=== PATIENT | female | born 1975 | race Caucasian/White ===

== ENCOUNTER 2018-07-08 11:39 | Emergency (ER) | payer OTHER ==
[2018-07-08] MEDS ORDERED: Ketorolac INJ* 60 MG/2 ML VIAL IM ONE (13:39)
[2018-07-08 14:07] LABS: ABS Basophils 0.1 10^3/ul (0-0.2); ABS Eosinophils 0 10^3/ul (0-0.6); ABS Lymphocytes 1.9 10^3/ul (1.0-4.8); ABS Monocytes 0.3 10^3/ul (0-0.8); ABS Neutrophils 6.1 10^3/ul (1.5-7.7); ABS Nucleated RBC 0 10^3/ul; Eosinophil % 0.6 % (0-6); Hematocrit 41 % (35-47); Hemoglobin 14.3 g/dl (12.0-16.0); Lymphocyte % 22.5 % (25-47); Mean Corpuscular HGB Conc 34 g/dl (31-36); Mean Corpuscular Hemoglobin 29 pg (27-31); Mean Corpuscular Volume 83 fL (80-97); Mean Platelet Volume 8.6 um3 (7.4-10.4); Nucleated Red Blood Cells % 0.2; Platelet Count 155 10^3/ul (150-450); Red Cell Distribution Width 14 % (10.5-15); White Blood Count 8.5 10^3/ul (3.5-10.8)
[2018-07-08 14:11] LABS: INR 0.94 (0.77-1.02)
--- NOTE | 2018-07-08 14:46 | RAD ---
CLINICAL HISTORY: R flank pain COMPARISON: Ultrasound dated September 02, 2016, CT dated August 12, 2011 TECHNIQUE: Multiple contiguous axial CT scans were obtained of the abdomen and pelvis, without intravenous contrast enhancement. Coronal and sagittal multiplanar reformations are submitted for review. Oral contrast was not administered. FINDINGS: The study is limited by the lack of intravenous contrast. This limits evaluation of the solid organs and vasculature. LUNG BASES: Again noted is nodularity of the lingula. This is stable from the 2011 examination. The stability is consistent with benign nodularity. LIVER: The liver is normal in shape, size, contour, and attenuation. BILE DUCTS: There is no intrahepatic or extrahepatic biliary dilatation. GALLBLADDER: The gallbladder is normal, without pericholecystic inflammatory change. PANCREAS: The pancreas is normal, without mass or ductal dilatation. SPLEEN: Normal in size and appearance. UPPER GI TRACT: Evaluation of the gastrointestinal tract is limited by incomplete gastric distention. The upper GI tract is unremarkable. SMALL BOWEL AND MESENTERY: The small bowel is normal in contour, course, and caliber. There is no obstruction or dilatation. COLON: The colon is normal in contour, course, caliber. There is no pericolonic inflammatory change. The appendix is not clearly visualized. There is no appreciable inflammatory change within the right lower quadrant. ADRENALS: Normal bilaterally. KIDNEYS: There is a punctate nonobstructing right renal calyceal stone. There is no hydronephrosis. There has been interval resolution of the staghorn calculus of the right kidney. There is a stable cyst of the upper pole of the right kidney BLADDER: The bladder is incompletely distended but is grossly normal. PELVIC ORGANS: The pelvic organs are not visualized. AORTA: There is calcific atherosclerotic disease of the abdominal aorta and its branches, without aneurysmal dilatation IVC: Unremarkable LYMPH NODES: There is no lymphadenopathy by size criteria. ABDOMINAL WALL: There is no evidence for abdominal wall hernia. BONES AND SOFT TISSUES: Degenerative changes are noted most pronounced at L5-S1. OTHER: None IMPRESSION: 1. PUNCTATE NONOBSTRUCTING RIGHT RENAL CALYCEAL STONE. 2. ATHEROSCLEROSIS.
[2018-07-08 14:48] LABS: EGFR Non-African American 90.3 (>60)
[2018-07-08 15:04] VITALS: BP 135/57
--- NOTE | 2018-07-09 07:32 | ED ---
Abdominal Pain/Female - HPI Summary HPI Summary: Patient is a 43-year-old female presenting to the ED very tearful stating she has had right flank pain which has been persistent for "over 365 days." She states she would not be here, however her family made her come. History of chronic pain syndrome and fibromyalgia for which she takes oxycodone daily. She states this has been helping her pain. She states she has followed up with the urologist, however thought Dr. Ortiz from [place] and Dr. Moreno from [place] with the same person. She did not like Dr. Ortiz and again became very tearful stating she would not return to see a urologist. History of kidney stones. Denies any urinary symptoms including burning, frequency, urgency, suprapubic tenderness. Denies any fevers, sweats, chills. Denies any shortness of breath or chest pain. Patient states she is feeling at her baseline and states this is how she feels daily. Nothing has worsened her symptoms over the past few days. Symptoms are not improved with positioning, by mouth intake or heat. - History of Current Complaint Chief Complaint: EDFlankPain Stated Complaint: RT FLANK PAIN/POSS KIDNEY ISSUES Time Seen by Provider: 07/08/18 12:18 Hx Obtained From: Patient Hx Last Menstrual Period: 22 yrs ago ?: No Onset/Duration: Sudden Onset Timing: Constant Severity Initially: Moderate Severity Currently: Moderate Pain Intensity: 0 Pain Scale Used: 0-10 Numeric Location: Flank Radiates: No Character: Dull Aggravating Factor(s): Nothing Alleviating Factor(s): Nothing Associated Signs and Symptoms: Positive: Back Pain. Negative: Blood in Stool, Urinary Symptoms, Decreased Appetite, Vaginal Discharge, Nausea, Vomiting - Risk Factors Ectopic Risk Factor: Negative Ovarian Torsion Risk Factor: Negative Allergies/Adverse Reactions: Allergies Allergy/AdvReac Type Severity Reaction Status Date / Time acetaminophen [From Vicodin] Allergy Severe Airway Verified 07/08/18 12:07 Obstruction hydrocodone [From Vicodin] Allergy Severe Airway Verified 07/08/18 12:07 Obstruction MS Pregabalin [From Lyrica] Allergy Severe Altered Verified 07/08/18 12:07 Mental Status MS Varenicline [From Chantix] Allergy Severe NAUSEA, Verified 07/08/18 12:07 TONGUE "TINGLING" MS Ibuprofen [Ibuprofen] Allergy Vomiting Verified 07/08/18 12:07 NICOTINE PATCH Allergy Rash Uncoded 07/08/18 12:07 PMH/Surg Hx/FS Hx/Imm Hx Previously Healthy: Yes Endocrine/Hematology History: Denies: Hx Diabetes, Hx Systemic Lupus Erythematosus, Hx Thyroid Disease Cardiovascular History: Reports: Hx Hypercholesterolemia Denies: Hx Congestive Heart Failure, Hx Hypertension, Hx Pacemaker/ICD Respiratory History: Reports: Hx Chronic Obstructive Pulmonary Disease (COPD), Other Respiratory Problems/Disorders - SOB/WHEEZING WITH EXTREME EXERTION- PRN INHALER Denies: Hx Asthma GI History: Denies: Hx Ulcer History: Reports: Hx Kidney Stones, Other Problems/Disorders - KIDNEY STONES X 5 STAGHORN KIDNEY SURGERY X 5 Denies: Hx Dialysis, Hx Renal Disease Musculoskeletal History: Reports: Other Musculoskeletal History - HX FIBROMYALGIA Denies: Hx Rheumatoid Arthritis Sensory History: Reports: Hx Contacts or Glasses - GLASSES Denies: Hx Hearing Aid Opthamlomology History: Reports: Hx Contacts or Glasses - GLASSES Psychiatric History: Denies: Hx Panic Disorder - Cancer History Cancer Type, Location and Year: uterine ca Hx Chemotherapy: No - Surgical History Surgery Procedure, Year, and Place: X 5 STAGHORN CALCULI, HYSTERECTOMY Hx Anesthesia Reactions: No - Immunization History Hx Pertussis Vaccination: No Immunizations Up to Date: Yes Infectious Disease History: No Infectious Disease History: Denies: Hx Hepatitis, Hx Human Immunodeficiency Virus (HIV), Traveled Outside the in Last 30 Days - Social History Occupation: Unemployed Lives: With Family Alcohol Use: None Hx Substance Use: Yes Substance Use Type: Reports: Marijuana Smoking Status (MU): Light Every Day Tobacco Smoker Type: Cigarettes Review of Systems Constitutional: Negative Negative: Fever, Chills, Fatigue Negative: Palpitations, Chest Pain Negative: Shortness Of Breath, Cough Positive: see HPI, flank pain Skin: Negative Neurological: Negative All Other Systems Reviewed And Are Negative: Yes Physical Exam Triage Information Reviewed: Yes Vital Signs On Initial Exam: Initial Vitals Temp Pulse Resp BP Pulse Ox 98 F 70 18 132/72 99 07/08/18 11:40 07/08/18 11:40 07/08/18 11:40 07/08/18 11:40 07/08/18 11:40 Vital Signs Reviewed: Yes Appearance: Positive: Well-Appearing, Well-Nourished Skin: Positive: Warm, Skin Color Reflects Adequate Perfusion Head/Face: Positive: Normal Head/Face Inspection Eyes: Positive: EOMI, NITZA, Conjunctiva Clear Neck: Positive: Supple, No Lymphadenopathy Respiratory/Lung Sounds: Positive: Clear to Auscultation, Breath Sounds Present Cardiovascular: Positive: RRR, Pulses are Symmetrical in both Upper and Lower Extremities Abdomen Description: Positive: Nontender, Soft, CVA Tenderness (R). Negative: CVA Tenderness (L), Hepatomegaly, McBurney's Point Tenderness, Splenomegaly Musculoskeletal: Positive: Normal, Strength/ROM Intact Neurological: Positive: Speech Normal Psychiatric: Positive: Normal, Affect/Mood Appropriate AVPU Assessment: Alert Diagnostics - Vital Signs Vital Signs Temp Pulse Resp BP Pulse Ox 07/08/18 15:20 98 F 50 18 135/57 97 07/08/18 15:02 58 14 135/57 96 07/08/18 15:00 51 10 96 07/08/18 14:32 50 11 130/58 99 07/08/18 14:01 61 13 146/79 98 07/08/18 14:00 52 12 100 07/08/18 13:31 69 16 152/84 98 07/08/18 13:02 53 20 136/69 99 07/08/18 13:00 69 19 97 07/08/18 12:01 72 20 126/86 99 07/08/18 11:40 98 F 70 18 132/72 99 - Laboratory Lab Results: Lab Results 07/08/18 07/08/18 07/08/18 Range/Units 13:54 13:54 13:54 WBC 8.5 (3.5-10.8) 10^3/ul RBC 5.00 (4.00-5.40) 10^6/ul Hgb 14.3 (12.0-16.0) g/dl Hct 41 (35-47) % MCV 83 (80-97) fL MCH 29 (27-31) pg MCHC 34 (31-36) g/dl RDW 14 (10.5-15) % Plt Count 155 (150-450) 10^3/ul MPV 8.6 (7.4-10.4) um3 Neut % (Auto) 72.4 (38-83) % Lymph % (Auto) 22.5 L (25-47) % Beauregard % (Auto) 3.5 (0-7) % Eos % (Auto) 0.6 (0-6) % Baso % (Auto) 1.0 (0-2) % Absolute Neuts (auto) 6.1 (1.5-7.7) 10^3/ul Absolute Lymphs (auto) 1.9 (1.0-4.8) 10^3/ul Absolute Monos (auto) 0.3 (0-0.8) 10^3/ul Absolute Eos (auto) 0 (0-0.6) 10^3/ul Absolute Basos (auto) 0.1 (0-0.2) 10^3/ul Absolute Nucleated RBC 0 10^3/ul Nucleated RBC % 0.2 INR (Anticoag Therapy) 0.94 (0.77-1.02) Sodium 139 (135-145) mmol/L Potassium 4.0 (3.5-5.0) mmol/L Chloride 110 (101-111) mmol/L Carbon Dioxide 21 L (22-32) mmol/L Anion Gap 8 (2-11) mmol/L BUN 13 (6-24) mg/dL Creatinine 0.71 (0.51-0.95) mg/dL Est GFR ( Amer) 109.2 (>60) Est GFR (Non-Af Amer) 90.3 (>60) BUN/Creatinine Ratio 18.3 (8-20) Glucose 87 (70-100) mg/dL Lactic Acid (0.5-2.0) mmol/L Calcium 9.5 (8.6-10.3) mg/dL Magnesium 2.0 (1.9-2.7) mg/dL Total Bilirubin 0.40 (0.2-1.0) mg/dL AST 12 L (13-39) U/L ALT 9 (7-52) U/L Alkaline Phosphatase 86 (34-104) U/L C-Reactive Protein 6.69 (<8.01) mg/L Total Protein 7.5 (6.4-8.9) g/dL Albumin 4.2 (3.2-5.2) g/dL Globulin 3.3 (2-4) g/dL Albumin/Globulin Ratio 1.3 (1-3) Lipase 13 (11.0-82.0) U/L Beta HCG, Quant 1.57 mIU/mL 07/08/18 Range/Units 13:54 WBC (3.5-10.8) 10^3/ul RBC (4.00-5.40) 10^6/ul Hgb (12.0-16.0) g/dl Hct (35-47) % MCV (80-97) fL MCH (27-31) pg MCHC (31-36) g/dl RDW (10.5-15) % Plt Count (150-450) 10^3/ul MPV (7.4-10.4) um3 Neut % (Auto) (38-83) % Lymph % (Auto) (25-47) % Beauregard % (Auto) (0-7) % Eos % (Auto) (0-6) % Baso % (Auto) (0-2) % Absolute Neuts (auto) (1.5-7.7) 10^3/ul Absolute Lymphs (auto) (1.0-4.8) 10^3/ul Absolute Monos (auto) (0-0.8) 10^3/ul Absolute Eos (auto) (0-0.6) 10^3/ul Absolute Basos (auto) (0-0.2) 10^3/ul Absolute Nucleated RBC 10^3/ul Nucleated RBC % INR (Anticoag Therapy) (0.77-1.02) Sodium (135-145) mmol/L Potassium (3.5-5.0) mmol/L Chloride (101-111) mmol/L Carbon Dioxide (22-32) mmol/L Anion Gap (2-11) mmol/L BUN (6-24) mg/dL Creatinine (0.51-0.95) mg/dL Est GFR ( Amer) (>60) Est GFR (Non-Af Amer) (>60) BUN/Creatinine Ratio (8-20) Glucose (70-100) mg/dL Lactic Acid 0.7 (0.5-2.0) mmol/L Calcium (8.6-10.3) mg/dL Magnesium (1.9-2.7) mg/dL Total Bilirubin (0.2-1.0) mg/dL AST (13-39) U/L ALT (7-52) U/L Alkaline Phosphatase (34-104) U/L C-Reactive Protein (<8.01) mg/L Total Protein (6.4-8.9) g/dL Albumin (3.2-5.2) g/dL Globulin (2-4) g/dL Albumin/Globulin Ratio (1-3) Lipase (11.0-82.0) U/L Beta HCG, Quant mIU/mL Result Diagrams: 07/08/18 13:54 07/08/18 13:54 Lab Statement: Any lab studies that have been ordered have been reviewed, and results considered in the medical decision making process. Abdominal Pain Fem Course/Dx - Course Course Of Treatment: Patient is evaluated for possible obstructing kidney stone. History of kidney stones, however states this has been present times one year. CTA obtained which shows a nonobstructing right renal calculi. This most likely is not the cause of her symptoms. She has been told in the past she has a "dysfunctional kidney." She states her at home oxycodone has been helping her with her pain. Labs obtained and are all WNL. Discussed with patient and highly encouraging her to follow up with Dr. Moreno for further evaluation. She is okay with this plan and discharged. While she is in the ED she is given 60 mg IM Toradol with minimal relief. - Diagnoses Provider Diagnoses: Renal calculi Discharge - Sign-Out/Discharge Documenting (check all that apply): Patient Departure - Discharge Plan Condition: Stable Disposition: HOME Patient Education Materials: Kidney Stones (ED) Referrals: Alondra Thompson [Primary Care Provider] - Js Moreno MD [Medical Doctor] - - Billing Disposition and Condition Condition: STABLE Disposition: Home
== END 2018-07-08 15:20 | disposition home or self-care (01) ==
LOC: ED 11:39
DX: N20.0 Calculus of kidney (principal); M54.9 Dorsalgia, unspecified; F17.210 Nicotine dependence, cigarettes, uncomplicated
CPT/HCPCS: 36415; 74176; 80053; 83605; 83690; 83735; 84702; 85025; 85610; 86140; 96372; 99283; J1885

== ENCOUNTER 2019-03-12 07:06 | Emergency (ER) | payer OTHER ==
--- NOTE | 2019-03-12 07:19 | ED ---
Abdominal Pain/Female - HPI Summary HPI Summary: A 44 y/o F brought in by ambulance presents to ED c/o vomiting onset 0300 this date. The vomiting irritated her R kidneys, she has PMHx: repetitious kidney stones on R. She sees Dr. Moreno, uro. Associated sx: bilat temporal SKELTON, R flank pain. She was at baseline yesterday. - History of Current Complaint Chief Complaint: EDFlankPain Stated Complaint: "FLANK PAIN" PER EMS Time Seen by Provider: 03/12/19 07:14 Hx Obtained From: Patient Hx Last Menstrual Period: 22 yrs ago Onset/Duration: Lasting Hours, Still Present Timing: Constant Severity Currently: Severe Pain Intensity: 9 Pain Scale Used: 0-10 Numeric Location: Flank - R Associated Signs and Symptoms: Positive: Vomiting, Other: - pos: R flank pain, SKELTON. Allergies/Adverse Reactions: Allergies Allergy/AdvReac Type Severity Reaction Status Date / Time acetaminophen [From Vicodin] Allergy Severe Airway Verified 07/08/18 12:07 Obstruction hydrocodone [From Vicodin] Allergy Severe Airway Verified 07/08/18 12:07 Obstruction nicotine [From Nicoderm CQ] Allergy Severe Rash Verified 03/12/19 08:34 pregabalin Allergy Severe Altered Verified 03/12/19 08:34 Mental Status varenicline Allergy Severe Nausea, Verified 03/12/19 08:34 Tongue "tingling" ibuprofen AdvReac Intermediate Vomiting Verified 03/12/19 08:34 NICOTINE PATCH Allergy Severe Rash Uncoded 03/12/19 08:34 Home Medications: Home Medications Oxycodone IR 10 MG(NF) 10 mg PO TID PRN 03/12/19 [History Confirmed 03/12/19] PMH/Surg Hx/FS Hx/Imm Hx Previously Healthy: No Endocrine/Hematology History: Denies: Hx Diabetes, Hx Systemic Lupus Erythematosus, Hx Thyroid Disease Cardiovascular History: Reports: Hx Hypercholesterolemia Denies: Hx Congestive Heart Failure, Hx Hypertension, Hx Pacemaker/ICD Respiratory History: Reports: Hx Chronic Obstructive Pulmonary Disease (COPD), Other Respiratory Problems/Disorders - SOB/WHEEZING WITH EXTREME EXERTION- PRN INHALER Denies: Hx Asthma GI History: Denies: Hx Ulcer History: Reports: Hx Kidney Stones, Other Problems/Disorders - KIDNEY STONES X 5 STAGHORN KIDNEY SURGERY X 5 Denies: Hx Dialysis, Hx Renal Disease Musculoskeletal History: Reports: Other Musculoskeletal History - HX FIBROMYALGIA Denies: Hx Rheumatoid Arthritis Sensory History: Reports: Hx Contacts or Glasses - GLASSES Opthamlomology History: Reports: Hx Contacts or Glasses - GLASSES Psychiatric History: Denies: Hx Panic Disorder - Cancer History Cancer Type, Location and Year: uterine ca Hx Chemotherapy: No - Surgical History Surgery Procedure, Year, and Place: X 5 STAGHORN CALCULI, HYSTERECTOMY Hx Anesthesia Reactions: No Infectious Disease History: No Infectious Disease History: Denies: Hx Hepatitis, Hx Human Immunodeficiency Virus (HIV), Traveled Outside the [place] in Last 30 Days - Family History Family History: neg: anaesthesia reaction - Social History Occupation: Unemployed Lives: Alone Alcohol Use: None Hx Substance Use: Yes Substance Use Type: Reports: Marijuana Hx Tobacco Use: Yes Smoking Status (MU): Light Every Day Tobacco Smoker Type: Cigarettes Review of Systems Positive: Vomiting Positive: flank pain - R Positive: Headache All Other Systems Reviewed And Are Negative: Yes Physical Exam - Summary Physical Exam Summary: Appearance: The patient is well-nourished in no acute distress and in no acute pain. Skin: The skin is warm and dry and skin color reflects adequate perfusion. HEENT: The head is normocephalic and atraumatic. The pupils are equal and reactive. The conjunctivae are clear and without drainage. Nares are patent and without drainage. Mouth reveals moist mucous membranes and the throat is without erythema and exudate. The external ears are intact. The ear canals are patent and without drainage. The tympanic membranes are intact. Neck: the neck is supple with full range of motion and non-tender. There are no carotid bruits. There is no neck vein distension. Respiratory: Chest is non-tender. Lungs are clear to auscultation and breath sounds are symmetrical and equal. Cardiovascular: Heart is regular rate and rhythm. There is no murmur or rub auscultated. There is no peripheral edema and pulses are symmetrical and equal. Abdomen: The abdomen is soft and non-tender. No CVA tenderness. There are normal bowel sounds heard in all four quadrants and there is no organomegaly palpated. Musculoskeletal: There is no back tenderness noted. Extremities are non-tender with full range of motion. There is good capillary refill. There is no peripheral edema or calf tenderness elicited. Neurological: Patient is alert and oriented to person, place and time. The patient has symmetrical motor strength in all four extremities. Cranial nerves are grossly intact. Deep tendon reflexes are symmetrical and equal in all four extremities. Psychiatric: The patient has an appropriate affect and does not exhibit any anxiety or depression. Triage Information Reviewed: Yes Vital Signs On Initial Exam: Initial Vitals Temp Pulse Resp BP Pulse Ox 97.0 F 62 18 162/88 100 03/12/19 07:12 03/12/19 07:12 03/12/19 07:12 03/12/19 07:12 03/12/19 07:12 Vital Signs Reviewed: Yes Diagnostics - Vital Signs Vital Signs Temp Pulse Resp BP Pulse Ox 03/12/19 07:12 97.0 F 62 18 162/88 100 - Laboratory Result Diagrams: 03/11/19 07:47 03/11/19 07:47 Lab Statement: Any lab studies that have been ordered have been reviewed, and results considered in the medical decision making process. - Ultrasound No standard instances Ultrasound Interpretation Completed By: Radiologist Summary of Ultrasound Findings: RENAL US IMPRESSION: NO RIGHT HYDRONEPHROSIS OR NEPHROLITHIASIS. ED provider has reviewed this report. Abdominal Pain Fem Course/Dx - Course Course Of Treatment: Mr. Saeed had rapid and near complete relief of her headache and vomiting with IV pain medications of morphine and Zofran. Her right flank pain reduced to her chronic level and she felt much improved. She has no hydronephrosis on ultrasound but she does have a spot of blood microscopically in her urine and I can't know for certain whether she has a stone or not without doing a CT. Since she is improved dramatically I'm hesitant to expose her to even more radiation she's had quite a lifetime burden already. She had a white count of 13,000 consistent with stress demargination and there was no sign of infection in her urine. - Diagnoses Provider Diagnoses: Headache Discharge - Sign-Out/Discharge Documenting (check all that apply): Patient Departure - D/C Patient Received Moderate/Deep Sedation with Procedure: No - Discharge Plan Condition: Stable Disposition: HOME Patient Education Materials: Acute Headache (ED) Referrals: Alondra Thompson [Primary Care Provider] - 3 Days Additional Instructions: Please return to the ED if you experience new or worsening symptoms. Follow up with your primary care provider in 2-3 days. - Billing Disposition and Condition Condition: STABLE Disposition: Home - Attestation Statements Document Initiated by Scribe: Yes Documenting Scribe: Nain Valle Provider For Whom Karoline is Documenting (Include Credential): Dr. Nikolay Guaman MD Scribe Attestation: I, Nain Valle, scribed for Dr. Nikolay Guaman MD on 03/12/19 at 1056. Scribe Documentation Reviewed: Yes Provider Attestation: The documentation as recorded by the karoline, Nain Valle accurately reflects the service I personally performed and the decisions made by me, Dr. Nikolay Guaman MD Status of Scribe Document: Viewed
[2019-03-12] MEDS ORDERED: Ondansetron INJ* 2 MG/ML VIAL IV ONE (07:31)
[2019-03-12] MEDS ORDERED: Morphine 4 MG/ML VIAL (1 ml) 4 MG/ML VIAL IV ONE (07:31)
[2019-03-12] MEDS ORDERED: NS 0.9% 1000 ML** 1,000 ML IV ONE (07:33)
[2019-03-12 08:14] LABS: Hematocrit 47 % (35-47); Hemoglobin 15.9 g/dL (12.0-16.0); Mean Corpuscular HGB Conc 34 g/dL (31-36); Mean Corpuscular Hemoglobin 29 pg (27-31); Mean Corpuscular Volume 85 fL (80-97); Red Blood Count 5.55 10^6 /uL (3.70-4.87); Red Cell Distribution Width 15 % (10.5-15); White Blood Count 13.4 10^3/uL (3.5-10.8)
[2019-03-12 08:15] LABS: Albumin 4.7 g/dL (3.2-5.2); Albumin/Globulin Ratio 1.2 (1-3); BUN/Creatinine Ratio 18.7 (8-20); C Reactive Protein 13.81 mg/L (<8.01); Calcium 10.4 mg/dL (8.6-10.3); EGFR African American 81.6 (>60); EGFR Non-African American 67.5 (>60); Globulin 3.9 g/dL (2-4); Potassium 4.2 mmol/L (3.5-5.0); Total Bilirubin 0.3 mg/dL (0.2-1.0); Total Protein 8.6 g/dL (6.4-8.9)
[2019-03-12 08:21] LABS: HCG Pregnancy 0.99 mIU/mL
[2019-03-12 09:27] LABS: ABS Basophils 0.1 10^3/ul (0-0.2); ABS Eosinophils 0.1 10^3/ul (0-0.6); ABS Lymphocytes 1.9 10^3/ul (1.0-4.8); ABS Monocytes 0.2 10^3/ul (0-0.8); ABS Neutrophils 11.2 10^3/ul (1.5-7.7); Eosinophil % 0.5 %; Lymphocyte % 13.8 %; Mean Platelet Volume 8.7 fL (7.4-10.4); Nucleated Red Blood Cells % 0.1; Platelet Count 194 10^3/uL (150-450)
[2019-03-12 10:32] LABS: Urine Appearance Clear; Urine Bacteria Absent (Absent); Urine Bilirubin Negative (Negative); Urine Blood Negative (Negative); Urine Color Yellow; Urine Glucose Negative (Negative); Urine Ketones Trace (Negative); Urine Nitrite Negative (Negative); Urine Protein 1+(30 mg/dL) (Negative); Urine Red Blood Cell 2+(6-10/hpf) (Absent); Urine Specific Gravity 1.023 (1.010-1.030); Urine Squamous Epithelial Cell Present (Absent); Urine Urobilinogen Negative (Negative); Urine White Blood Cell Trace(0-5/hpf) (Absent)
[2019-03-12 11:04] VITALS: BP 123/93
== END 2019-03-12 11:03 | disposition home or self-care (01) ==
LOC: ED 07:06
DX: R51 Headache (principal); E78.00 Pure hypercholesterolemia, unspecified; J44.9 Chronic obstructive pulmonary disease, unspecified; M79.7 Fibromyalgia; F17.210 Nicotine dependence, cigarettes, uncomplicated; Z79.51 Long term (current) use of inhaled steroids; Z85.42 Personal history of malignant neoplasm of other parts of uterus; Z88.6 Allergy status to analgesic agent; Z88.5 Allergy status to narcotic agent; Z88.8 Allergy status to other drugs, medicaments and biological substances
CPT/HCPCS: 36415; 76775; 80053; 81003; 81015; 83605; 83690; 84702; 85025; 86140; 87086; 96374; 96375; 99284; J2270; J2405

== ENCOUNTER 2019-08-13 15:43 | Emergency (ER) | payer OTHER ==
--- OUTSIDE RECORDS SUMMARY | 2019-08-13 16:15 | XMS REPORT | Continuity of Care Document ---
:1975 External Reference #:[id number] Author Name Alondra Flynn PA (transmitted by agent of provider Yunior Marshall) Address [address] [facility], [address] [place] [address] Care Team Providers Name Role Phone Js Moreno MD - Urology Care Team Information Hydraulic Press Operator [phone] Alexi Pena DO - Pain Medicine Care Team Information Hydraulic Press Operator Alhaji Fink MD - Neurological Care Team Information Hydraulic Press Operator Surgery HCP given Care Team Information Hydraulic Press Operator Unavailable Problems Active Problems Provider Date Splenic cyst Alondra Flynn PA Onset: 12/06/2016 Chronic pain syndrome Alondra Flynn PA Onset: 12/06/2016 Onychomycosis Alondra Flynn PA Onset: 12/06/2016 Hyperlipidemia Alondra Flynn PA Onset: 12/06/2016 Depressive disorder Alondra Flynn PA Onset: 12/06/2016 Nicotine dependence Alondra Flynn PA Onset: 12/06/2016 Insomnia Alondra Flynn PA Onset: 12/06/2016 Raynaud's disease Alondra Flynn PA Onset: 12/06/2016 Chronic obstructive lung disease Alondra Flynn PA Onset: 12/06/2016 Multiple nodules of lung Alondra Flynn PA Onset: 12/06/2016 Kidney stone Alondra Flynn PA Onset: 12/06/2016 Prolapsed lumbar intervertebral disc Alondra Flynn PA Onset: 12/06/2016 Neck pain Alondra Flynn PA Onset: 12/06/2016 Low back pain Alondra Flynn PA Onset: 12/06/2016 Sciatica Alondra Flynn PA Onset: 12/06/2016 Fibromyalgia Alondra Flynn PA Onset: 12/06/2016 Congenital anomaly of lung Alondra Flynn PA Onset: 12/06/2016 Tobacco user Alondra Flynn PA Onset: 12/06/2016 Solitary nodule of lung Alondra Flynn PA Onset: 12/06/2016 Recurrent major depressive episodes Alondra Flynn PA Onset: 06/20/2017 Social History Type Date Description Comments Sex Unknown Tobacco Use Reviewed: 02/24/19 Patient is a current trying to cut down cigarette smoker, smokes every day Smoking Status Reviewed: 02/26/19 Patient is a current trying to cut down cigarette smoker, smokes every day ETOH Use Denies alcohol use Tobacco Use Start: Unknown Patient is a current smoker, smokes every day Recreational Drug Use 01/21/2019 Marijuana regular use - helps chronic pain Exercise Type/Frequency Does not exercise Sun Exposure Does not use sunscreen Seat Belt/Car Seat Seat Belt Use - Yes Guns in Home No Smoke Alarms Yes smoke alarm Allergies, Adverse Reactions, Alerts Active Allergies Reaction Severity Comments Date Ibuprofen dizziness 12/06/2016 Lyrica anaphylaxis 12/06/2016 Vicodin dizziness 12/06/2016 Cyclobenzaprine headaches 02/24/2019 Medications Active Medications SIG Qnty Indications Ordering Date Provider Oxycodone HCL take 1-2 tablets 82tabs G89.4 Yunior Marshall, 06/11/2019 5mg Tablets by mouth 3 times D.O. a day as needed for pain refill due 06/18/19 Cyclobenzaprine HCL 1 tab by mouth 90tabs Silcoff, 05/11/2019 10mg three times a Melissa Fischer Tablets day as needed for spasms Amoxicillin/Clavulanat 1 tab by mouth 20tabs J01.90 Silcoff, 03/24/2019 e Potassium twice a day x10 Melissa Fischer 875-125mg days Tablets Gabapentin take 1 cap po in 90caps G89.4 Silcoff, 01/22/2018 100mg Capsules morning and 2 Melissa Fischer capsules po at bedtime Ventolin HFA 2 puffs q4-6 18gm Silcoff, 11/05/2017 108(90Base) hours as needed Melissa Fischer mcg/Act Aerosol Ciclopirox apply to 19.8ml Silcoff, 10/02/2017 8% Solution affected nails Melissa Fischer twice a day Vitamin B-12 2 tabs po daily 60tabs Silcoff, 10/02/2017 500mcg Melissa Fischer Tablets Zaleplon 1 cap by mouth 30caps G47.00 Silcoff, 07/09/2017 10mg Capsules at bedtime for Melissa Fischer insomnia mdd 1 Citalopram take 1 tablet by 30tabs F33.9 Silcoff, 06/20/2017 Hydrobromide mouth once daily Melissa Fischer 40mg Tablets Triamcinolone use as directed 15gm Silcoff, 12/06/2016 Acetonide twice a day to Melissa Fischer 0.1% Cream affected areas as needed Oxygen NC Alondra Flynn, 12/06/2016 PA Naproxen Sodium Unknown 275mg Tablets Advair Diskus Stevanofred, MD Deisy 250-50mcg/Dose Aerosol Ondansetron 1 tab by mouth 3 90tabs Silcoff, 4mg Tablets times a day as Melissa Fischer Dispers needed nausea Simvastatin take 1 tablet by 30tabs E78.5 Silcoff, 10mg Tablets mouth at bedtime Melissa Fischer Albuterol Sulfate inhale contents 225units Silcoff, of 1 vial in Melissa Fischer (2.5mg/3ML) 0.083% nebulizer three Nebulizer times a day For 30 Days Immunizations Description No Information Available Vital Signs Date Vital Result Comment 03/24/2019 2:52pm BP Systolic 128 mmHg BP Diastolic 78 mmHg 02/24/2019 9:11am BP Systolic 108 mmHg BP Diastolic 70 mmHg Height 63 inches 5'3" Weight 152.50 lb BMI (Body Mass Index) 27.0 kg/m2 Results Test Date Facility Test Result H/L Range Note Comp Metabolic Panel 03/11/2019 [facility] Sodium 140 mmol/L Normal 135-145 [phone] Potassium 4.2 mmol/L Normal 3.5-5.0 Chloride 107 mmol/L Normal 101-111 Co2 Carbon Dioxide 21 mmol/L Low 22-32 Anion Gap 12 mmol/L High 2-11 Glucose 150 mg/dL High 70-100 Blood Urea Nitrogen 17 mg/dL Normal 6-24 Creatinine 0.91 mg/dL Normal 0.51-0.95 BUN/Creatinine Ratio 18.7 Normal 8-20 Calcium 10.4 mg/dL High 8.6-10.3 Total Protein 8.6 g/dL Normal 6.4-8.9 Albumin 4.7 g/dL Normal 3.2-5.2 Globulin 3.9 g/dL Normal 2-4 Albumin/Globulin Ratio 1.2 Normal 1-3 Total Bilirubin 0.30 mg/dL Normal 0.2-1.0 Alkaline Phosphatase 111 U/L High 34-104 Alt 13 U/L Normal 7-52 Ast 13 U/L Normal 13-39 Egfr Non- 67.5 >60 Egfr 81.6 >60 1 Laboratory test finding 03/11/2019 [facility] Lipase 20 U/L Normal 11.0-82.0 [phone] C Reactive Protein 13.81 mg/L High <8.01 HCG 0.99 mIU/mL 2 Lactic Acid 2.1 mmol/L Critical high 0.5-2.0 3 CBC Auto Diff 03/11/2019 [facility] White Blood 13.4 10^3/uL High 3.5 -10.8 [phone] Count Red Blood Count 5.55 10^6/uL High 3.70-4.87 Hemoglobin 15.9 g/dL Normal 12.0-16.0 Hematocrit 47 % Normal 35-47 Mean Corpuscular Volume 85 fL Normal 80-97 Mean Corpuscular Hemoglobin 29 pg Normal 27-31 Mean Corpuscular HGB Conc 34 g/dL Normal 31-36 Red Cell Distribution Width 15 % Normal 10.5-15 Platelet Count 194 10^3/uL Normal 150-450 4 Mean Platelet Volume 8.7 fL Normal 7.4-10.4 Abs Neutrophils 11.2 10^3/uL High 1.5-7.7 Abs Lymphocytes 1.9 10^3/uL Normal 1.0-4.8 Abs Monocytes 0.2 10^3/uL Normal 0-0.8 Abs Eosinophils 0.1 10^3/uL Normal 0-0.6 Abs Basophils 0.1 10^3/uL Normal 0-0.2 Abs Nucleated RBC 0.0 10^3/uL Granulocyte % 83.4 % Lymphocyte % 13.8 % Monocyte % 1.6 % Eosinophil % 0.5 % Basophil % 0.7 % Nucleated Red Blood Cells % 0.1 Urinalysis Profile 03/11/2019 [facility] Urine Color Yellow [phone] Urine Appearance Clear Urine Specific [place] 1.023 Normal 1.010-1.030 Urine pH 5.0 Normal 5-9 Urine Urobilinogen Negative Negative Urine Ketones Trace Abnormal Negative Urine Protein 1+(30 mg/dL) Abnormal Negative Urine Leukocytes Negative Negative Urine Blood Negative Negative Urine Nitrite Negative Negative Urine Bilirubin Negative Negative Urine Glucose Negative Negative Urine White Blood Cell Trace(0-5/hpf) Absent Urine Red Blood Cell 2+(6-10/hpf) Abnormal Absent Urine Bacteria Absent Absent Urine Squamous Epithelial Cell Present Abnormal Absent Urine Culture And 03/11/2019 [facility] Urine Culture SEE RESULT BELOW 5 Sensitivities [phone] Urine Drug Screen 01/21/2019 In House Ua Cocaine - Inhouse Ua Opiates - Ua Amphetamines - Urine Methanphetamines - Urine Benzodiazepines QN [place] - Urine Oxycodone QL + 1 Because ethnic data is not always readily available, this report includes an eGFR for both -Americans and non- Americans. The National Kidney Disease Education Program (NKDEP) does not endorse the use of the MDRD equation for patients that are not between the ages of 18 and 70, are , have extremes of body size, muscle mass, or nutritional status, or are non- or non-. According to the National Kidney Foundation, irrespective of diagnosis, the stage of the disease is based on the level of kidney function: Stage Description GFR(mL/min/1.73 m(2)) 1 Kidney damage with normal or decreased GFR 90 2 Kidney damage with mild decrease in GFR 60-89 3 Moderate decrease in GFR 30-59 4 Severe decrease in GFR 15-29 5 Kidney failure <15 (or dialysis) 2 <5.0 Negative 5.0 - 25.0 Indeterminate (Repeat testing recommended after 72 hours) >25.0 Positive Perimenopausal women can display HCG levels of up to 20 mIU/mL 3 Verbal to [id number] by [email or web address] at 0833 on 03/12/19.Results read back accurately [facility] Severe Sepsis and Septic Shock Management Bundle Measure requires all lactic acids initially measuring >2.0 mmol/L be repeated. 4 Platelet count confirmed by estimate 5 SEE RESULT BELOW Name: DESIRAE SAEED Angela : [address]: Nikolay Guaman MD Acct: [id number] Unit: [id number] AGE: 44 Location: ED Re03/12/19 SEX: F Status: DEP ER SPEC: [id number] YANI: 03/12/19-[address]: Nikolay Guaman MD REQ: [id number] RECD: 03/12/19 STATUS: SCOTT VO DR: Alondra Flynn [facility] _ SOURCE: URINE SPDESC: ORDERED: Urine Culture Procedure Result Reported Site Urine Culture Final 03/13/19- 826 ML No Growth (<1,000 CFU/mL) * ML - Main Lab . END OF REPORT DEPARTMENT OF PATHOLOGY, [address] [place] [address] Boy Mosher M.D. Director [facility] # [id number] Procedures Date Code Description Status 11/04/2012 22454636 Mammogram Completed Medical Devices Description No Information Available Encounters Type Date Location Provider Dx Diagnosis Office Visit 03/24/2019 Main Office Alondra Flynn PA J01.90 Acute sinusitis, 2:30p unspecified R51 Headache Office Visit 02/24/2019 9:25a Main Office Alondra Flynn PA G89.4 Chronic pain syndrome Z79.891 transliterator (current) use of opiate analgesic N20.0 Calculus of kidney F17.210 Nicotine dependence, cigarettes, uncomplicated F33.9 Major depressive disorder, recurrent, unspecified Office Visit 01/21/2019 10:40a Main Office Alondra Flynn PA G89.4 Chronic pain syndrome Z79.891 senior care (current) use of opiate analgesic N20.0 Calculus of kidney F17.210 Nicotine dependence, cigarettes, uncomplicated Assessments Date Code Description Provider 03/24/2019 J01.90 Acute sinusitis, unspecified Alondra Flynn PA 03/24/2019 R51 Headache Alondra Flynn PA 02/24/2019 G89.4 Chronic pain syndrome Alondra Flynn PA 02/24/2019 Z79.891 senior care (current) use of opiate analgesic Alondra Flynn PA 02/24/2019 N20.0 Calculus of kidney Alondra Flynn PA 02/24/2019 F17.210 Nicotine dependence, cigarettes, uncomplicated Alondra Flynn PA 02/24/2019 F33.9 Major depressive disorder, recurrent, Alondra Flynn PA unspecified 01/21/2019 G89.4 Chronic pain syndrome Alondra Flynn PA 01/21/2019 Z79.891 transliterator (current) use of opiate analgesic Alondra Flynn PA 01/21/2019 N20.0 Calculus of kidney Alondra Flynn PA 01/21/2019 F17.210 Nicotine dependence, cigarettes, uncomplicated Alondra Flynn PA Plan of Treatment 02/24/2019 - Alondra Flynn, PAG89.4 Chronic pain syndromeComments:Continue oxycodone prn (max 3/day), gradually try to taper off. Pt to call if she is having any trouble. Monitor closely.Follow up:f/u 2-3 months, sooner if pohbxzJ18.891 transliterator (current) use of opiate vbiecjvytL74.0 Calculus of kidneyComments:Pt to f/u w Dr. Moreno (urology).F17.210 Nicotine dependence, cigarettes, uncomplicatedComments:Smoking cessation counseling <10 minutes done today. Pt is trying to cut down.F33.9 Major depressive disorder, recurrent , unspecifiedComments:Doing well overall on 40mg of citalopram. Continue same and monitor. Functional Status Description No Information Available Mental Status Description No Information Available Referrals Description No Information Available
--- OUTSIDE RECORDS SUMMARY | 2019-08-13 16:15 | XMS REPORT | Continuity of Care Document ---
:1975 External Reference #:[id number] Author Name Alondra Flynn PA (transmitted by agent of provider Yunior Marshall) Address [address] [facility], [address] [place] [address] Care Team Providers Name Role Phone Js Moreno MD - Urology Care Team Information Paperhanger Assistant [phone] Alexi Pena DO - Pain Medicine Care Team Information Paperhanger Assistant [phone] Alhaji Fink MD - Neurological Care Team Information Paperhanger Assistant [phone] Surgery HCP given Care Team Information Paperhanger Assistant Unavailable Problems Active Problems Provider Date Splenic [...] H/L Range Note Comp Metabolic Panel 03/11/2019 [facility] Sodium 140 mmol/L Normal 135-145 [phone] Potassium 4.2 mmol/L Normal 3.5-5.0 Chloride 107 [...] 81.6 >60 1 Laboratory test finding 03/11/2019 [facility] Lipase 20 U/L Normal 11.0-82.0 [phone] C Reactive Protein 13.81 mg/L High <8.01 HCG 0.99 mIU/mL 2 Lactic Acid 2.1 mmol/L Critical high 0.5-2.0 3 CBC Auto Diff 03/11/2019 [facility] White Blood 13.4 10^3/uL High 3.5 -10.8 [phone] Count Red Blood Count 5.55 10^6/uL High [...] Blood Cells % 0.1 Urinalysis Profile 03/11/2019 [facility] Urine Color Yellow [phone] Urine Appearance Clear Urine Specific [place] 1.023 Normal 1.010-1.030 Urine pH 5.0 Normal [...] Present Abnormal Absent Urine Culture And 03/11/2019 [facility] Urine Culture SEE RESULT BELOW 5 Sensitivities [phone] Urine Drug Screen 01/21/2019 In House Ua Cocaine - Inhouse Ua Opiates - Ua Amphetamines - Urine Methanphetamines - Urine Benzodiazepines QN [place] - Urine Oxycodone QL + 1 Because [...] up to 20 mIU/mL 3 Verbal to [id number] by [email or web address] at 0833 on 03/12/19.Results read back accurately [facility] Severe Sepsis and Septic Shock Management Bundle Measure requires all lactic acids initially measuring >2.0 mmol/L be repeated. 4 Platelet count confirmed by estimate 5 SEE RESULT BELOW Name: DESIRAE SAEED Angela : [address]: Nikolay Guaman MD Acct: [id number] Unit: [id number] AGE: 44 Location: ED Re03/12/19 SEX: F Status: DEP ER SPEC: [id number] YANI: 03/12/19-[address]: Nikolay Guaman MD REQ: [id number] RECD: 03/12/19 STATUS: SCOTT VO DR: Alondra Flynn [facility] _ SOURCE: URINE SPDESC: ORDERED: Urine Culture Procedure Result Reported Site Urine Culture Final 03/13/19- 826 ML No Growth (<1,000 CFU/mL) * ML - Main Lab . END OF REPORT DEPARTMENT OF PATHOLOGY, [address] [place] [address] Boy Mosher M.D. Director [facility] # [id number] Procedures Date Code Description Status 11/04/2012 [id number] Mammogram Completed Medical Devices Description No Information Available Encounters Type Date Location Provider Dx Diagnosis Office Visit 03/24/2019 Main Office Alondra Flynn PA J01.90 Acute sinusitis, 2:30p unspecified R51 Headache Office Visit 02/24/2019 9:25a Main Office Alondra Flynn PA G89.4 Chronic pain syndrome Z79.891 long term care pharmacist (current) use of opiate analgesic N20.0 Calculus of kidney F17.210 Nicotine dependence, cigarettes, uncomplicated F33.9 Major depressive disorder, recurrent, unspecified Office Visit 01/21/2019 10:40a Main Office Alondra Flynn PA G89.4 Chronic pain syndrome Z79.891 [facility] (current) use of opiate analgesic N20.0 Calculus of kidney F17.210 Nicotine dependence, cigarettes, uncomplicated Assessments Date Code Description Provider 03/24/2019 J01.90 Acute sinusitis, unspecified Alondra Flynn PA 03/24/2019 R51 Headache Alondra Flynn PA 02/24/2019 G89.4 Chronic pain syndrome Alondra Flynn PA 02/24/2019 Z79.891 [facility] (current) use of opiate analgesic Alondra Flynn PA 02/24/2019 N20.0 Calculus of kidney Alondra Flynn PA 02/24/2019 F17.210 Nicotine dependence, cigarettes, uncomplicated Alondra Flynn PA 02/24/2019 F33.9 Major depressive disorder, recurrent, Alondra Flynn PA unspecified 01/21/2019 G89.4 Chronic pain syndrome Alondra Flynn PA 01/21/2019 Z79.891 long term care pharmacist (current) use of opiate analgesic Alondra Flynn PA 01/21/2019 N20.0 Calculus of kidney Alondra Flynn PA 01/21/2019 F17.210 Nicotine dependence, cigarettes, uncomplicated Alondra Flynn PA Plan of Treatment 02/25/2018 - Alondra Flynn, PAG89.4 Chronic pain syndromeComments:Severe multifaceted chronic pain. Will increase gabapentin to 100mg in am and 200mg at bedtime. Continue other meds as same doses. Monitor closely.N20.0 Calculus of kidneyComments:Recurrent/persistent kidney stones w hx multiple surgeries. Patient had been seeing urologist, but hasn't been back recently. She was strongly encouraged again today to schedule imaging and f/u with [facility].E78.5 Hyperlipidemia, unspecifiedComments:Discussed lab results-- lipids quite elevated. Will restart simvastatin and pt to work on lower fat diet.F17.210 Nicotine dependence, cigarettes, uncomplicatedComments:Smoking cessation counseling <10 minutes done today. Functional Status Description No Information Available Mental Status Description No Information Available Referrals Description No Information Available
--- OUTSIDE RECORDS SUMMARY | 2019-08-13 16:15 | XMS REPORT | Continuity of Care Document ---
:1975 External Reference #:[id number] Author Name Alondra Flynn PA (transmitted by agent of provider Amado Grant) Address [address] [facility] [place] [address] Care Team Providers Name Role Phone Js Moreno MD - Urology Care Team Information Post Partum Nurse [phone] Alexi Pena DO - Pain Medicine Care Team Information Post Partum Nurse Alhaji Fink MD - Neurological Care Team Information Post Partum Nurse [phone] Surgery HCP given Care Team Information Post Partum Nurse Unavailable Problems Active Problems Provider Date Splenic cyst Alondra Flynn PA Onset: 12/06/2016 Chronic pain syndrome Alondra Flynn PA Onset: 12/06/2016 Onychomycosis Alondra Flynn PA Onset: 12/06/2016 Hyperlipidemia lAondra Flynn PA Onset: 12/06/2016 Depressive disorder Alondra [...] Description Comments Sex Unknown Tobacco Use Reviewed: 07/09/19 Patient is a current trying to cut down, cigarette smoker, now at <1/2 ppd smokes every day Smoking Status Reviewed: 07/09/19 Patient is a current trying to cut down, cigarette smoker, now at <1/2 ppd smokes every day ETOH Use Denies alcohol use Tobacco Use Start: Unknown Patient is a current smoker, smokes every day Recreational Drug Use 07/09/2019 Marijuana regular use - helps chronic pain Exercise Type/Frequency Does not exercise Exercise Limitations Back Pain Exercise Limitations Muscle Pain Sun Exposure Does not use sunscreen Seat Belt/Car Seat Seat Belt Use - Yes Guns in Home No Smoke Alarms Yes smoke alarm Allergies, Adverse Reactions, Alerts Active Allergies Reaction Severity Comments Date Ibuprofen dizziness 12/06/2016 Lyrica anaphylaxis 12/06/2016 Vicodin dizziness 12/06/2016 Medications Active Medications SIG Qnty Indications Ordering Date Provider Mupirocin apply to 22gm L01.00 Silcoff, 07/30/2019 2% Ointment affected area Melissa Fischer twice a day until resolved Naproxen 1 tab po bid prn 60tabs Silcoff, 07/13/2019 250mg Tablets Melissa Fischer Oxycodone HCL take 1-2 tablets 90tabs G89.4 Silcoff, 06/11/2019 5mg Tablets by mouth 3 times Melissa Fischer a day as needed for pain Cyclobenzaprine HCL 1 tab by mouth 90tabs Silcoff, 05/11/2019 10mg three times a Melissa Fischer Tablets day as needed for spasms Gabapentin take 1 cap po in 90caps [...] needed Oxygen NC Alondra Flynn, 12/06/2016 PA Gretel Pearson, MD Deisy 250-50mcg/Dose Aerosol Ondansetron 1 tab by mouth 3 90tabs Silcoff, 4mg Tablets times a day as Melissa Fischer Dispers needed nausea Simvastatin take 1 tablet by 30tabs E78.5 Silcoff, 10mg Tablets mouth at bedtime Melissa Fischer Albuterol Sulfate inhale contents 225units Silcoff, of 1 vial in Melissa Fischer (2.5mg/3ML) 0.083% nebulizer three Nebulizer times a day For 30 Days History Medications Amoxicillin/Clavulanate 1 tab by 20tabs J01.90 Silcoff, 03/24/2019 - Potassium mouth twice Melissa Fischer 04/03/2019 875-125mg Tablets a day x10 days Immunizations Description No Information Available Vital Signs Date Vital Result Comment 08/11/2019 9:47am BP Systolic 124 mmHg BP Diastolic 78 mmHg Body Temperature 97.7 F pt took Tylenol a few hours ago Height 63 inches 5'3" Weight 150.00 lb BMI (Body Mass Index) 26.6 kg/m2 07/30/2019 2:08pm BP Systolic 136 mmHg BP Diastolic 74 mmHg Results Test Date Facility Test Result H/L Range Note Ua RFX Micro & 08/09/2019 [facility]. Urine Color Light-Yellow Yellow 1 Culture II LABORATORY [phone] Urine Clarity Clear Clear Urine Glucose - Dipstick NEGATIVE mg/dL Negative Urine Bilirubin - Dipstick NEGATIVE Negative Urine Ketone NEGATIVE mg/dL Negative Urine Specific [place] 1.012 Normal 1.010-1.030 Urine Blood NEGATIVE 0-2 Urine PH 6.0 Low 6.5-7.5 Urine Protein - Dipstick NEGATIVE mg/dL Negative Urine Urobilinogen - Dipstick < 2.0 mg/dL < 2.0 Urine Nitrite - Dipstick NEGATIVE Negative Urine Leuk Esterase NEGATIVE Negative Source: URINE, CLEAN CAT <SEE NOTE> 2 CBS W/Automated 08/09/2019 [facility]. White 8.4 K/uL Normal 3.1-10.7 Diff LABORATORY Blood [phone] Count Red Blood Count 4.46 M/uL Normal 3.90-5.40 Hemoglobin 13.0 gm/dL Normal 11.6-15.8 Hematocrit 39.1 % Normal 36.0-46.1 Mean Cell Volume 87.7 fl Normal 80.9-99.0 Mean Corpuscular HGB 29.1 pg Normal 25.9-32.7 Mean Corpuscular HGB Conc 33.2 g/dL Normal 30.8-34.3 Platelet Count 152 K/uL Low 155-360 Red Cell Distri Width SD 45.2 fl Normal 36-47 Red Cell Distri Width %CV 14.0 % Normal 11.7-14.4 Mean Platelet Volume 11.2 fl Normal 8.9-12.4 Neut% 77.2 % High 40.4-72.8 Lymph % 17.7 % Low 20.0-42.0 [place] % 3.9 % Low 4.3-13.2 Eo% 0.5 % Normal 0.0-6.6 Bas% 0.2 % Normal 0.0-1.1 Immature Grans 0.5 % Normal 0.0-5.0 NRBC % 0.0 /100WBC < 10/ 100 WBC Neut# 6.51 K/uL Normal 1.8-7.0 Lymph # 1.49 K/uL Normal 1.0-4.0 [place] # 0.33 K/uL Normal 0.3-0.9 Eos # 0.04 K/uL Normal 0.0-0.5 Baso # 0.02 K/uL Normal 0.0-0.1 Immature Grans Absolute 0.04 K/uL NRBC # 0.00 K/uL Lactic Acid 08/09/2019 [facility]. Lactic Acid 1.1 mmol/L Normal 0.4-1.9 LABORATORY [phone] Lab Reflex >2.0 for Sepsis? Y Comprehensive 08/09/2019 [facility]. Glucose 108 mg/dL High 74-106 Metabolic Panel LABORATORY [phone] BUN 11 mg/dL Normal 7-18 Creatinine 0.7 mg/dL Normal 0.6-1.3 Glom Filtration Rate, Estimate >60 mL/min >60 If >60 mL/min >60 3 BUN/Creat 15.7 ratio Sodium 141 mmol/L Normal 136-145 Potassium 3.7 mmol/L Normal 3.5-5.1 Chloride 112 mmol/L High 98-107 Carbon Dioxide 25 mmol/L Normal 21-32 Anion Gap 4 mEq/L Low 8-16 Calcium 8.8 mg/dL Normal 8.5-10.1 Total Protein 6.8 g/dL 6.4-8.2 Albumin 3.7 g/dL Normal 3.4-5.0 Globulin 3.1 g/dL Normal 1.9-4.3 Alb/Glob 1.2 ratio Bilirubin,Total 0.3 mg/dL Normal 0.2-1.0 Sgot/Ast 19 U/L Normal 15-37 SGPT/Alt 19 U/L Normal 12-78 Alkaline Phosphatase 85 U/L Normal 45-117 CBC 08/07/2019 [facility]. White Blood Count 7.2 K/uL Normal 3.1-10.7 4 LABORATORY [phone] Red Blood Count 4.10 M/uL Normal 3.90-5.40 Hemoglobin 12.0 gm/dL Normal 11.6-15.8 Hematocrit 36.0 % Normal 36.0-46.1 Mean Cell Volume 87.8 fl Normal 80.9-99.0 Mean Corpuscular HGB 29.3 pg Normal 25.9-32.7 Mean Corpuscular HGB Conc 33.3 g/dL Normal 30.8-34.3 Platelet Count 141 K/uL Low 155-360 Red Cell Distri Width SD 45.9 fl Normal 36-47 Red Cell Distri Width %CV 14.3 % Normal 11.7-14.4 Mean Platelet Volume 11.0 fl Normal 8.9-12.4 NRBC % 0.0 /100WBC < 10/ 100 WBC CBC 08/07/2019 [facility] White Blood Count 8.4 K/uL Normal 3.1-10.7 LABORATORY [phone] Red Blood Count 4.42 M/uL Normal 3.90-5.40 Hemoglobin 12.4 gm/dL Normal 11.6-15.8 Hematocrit 39.2 % Normal 36.0-46.1 Mean Cell Volume 88.7 fl Normal 80.9-99.0 Mean Corpuscular HGB 28.1 pg Normal 25.9-32.7 Mean Corpuscular HGB Conc 31.6 g/dL Normal 30.8-34.3 Platelet Count 157 K/uL Normal 155-360 Red Cell Distri Width SD 46.1 fl Normal 36-47 Red Cell Distri Width %CV 14.2 % Normal 11.7-14.4 Mean Platelet Volume 11.7 fl Normal 8.9-12.4 NRBC % 0.0 /100WBC < 10/ 100 WBC Basic Metabolic 08/07/2019 [facility] Glucose 82 mg/dL Normal 74-106 Panel LABORATORY [phone] BUN 15 mg/dL Normal 7-18 Creatinine 0.7 mg/dL Normal 0.6-1.3 Glom Filtration Rate, Estimate >60 mL/min >60 If >60 mL/min >60 5 BUN/Creat 21.4 ratio Sodium 140 mmol/L Normal 136-145 Potassium 3.6 mmol/L 3.5-5.1 Chloride 112 mmol/L High 98-107 Carbon Dioxide 21 mmol/L Normal 21-32 Anion Gap 7 mEq/L Low 8-16 Calcium 8.0 mg/dL Low 8.5-10.1 CBC 08/07/2019 [facility] White Blood Count 9.1 K/uL Normal 3.1-10.7 LABORATORY [phone] Red Blood Count 4.56 M/uL Normal 3.90-5.40 Hemoglobin 13.3 gm/dL Normal 11.6-15.8 Hematocrit 40.8 % Normal 36.0-46.1 Mean Cell Volume 89.5 fl Normal 80.9-99.0 Mean Corpuscular HGB 29.2 pg Normal 25.9-32.7 Mean Corpuscular HGB Conc 32.6 g/dL Normal 30.8-34.3 Platelet Count 162 K/uL Normal 155-360 Red Cell Distri Width SD 46.3 fl Normal 36-47 Red Cell Distri Width %CV 14.2 % Normal 11.7-14.4 Mean Platelet Volume 11.3 fl Normal 8.9-12.4 NRBC % 0.0 /100WBC < 10/ 100 WBC Type And Screen 08/06/2019 [facility]. Patient Blood A POS Normal 6 LABORATORY Type [phone] Antibody Screen Negative Normal Negative Comprehensive 08/06/2019 [facility]. Glucose 109 mg/dL High 74-106 Metabolic Panel LABORATORY [phone] BUN 22 mg/dL High 7-18 Creatinine 0.9 mg/dL Normal 0.6-1.3 Glom Filtration Rate, Estimate >60 mL/min >60 If >60 mL/min >60 7 BUN/Creat 24.4 ratio Sodium 137 mmol/L Normal 136-145 Potassium 5.1 mmol/L Normal 3.5-5.1 Chloride 111 mmol/L High 98-107 Carbon Dioxide 21 mmol/L Normal 21-32 Anion Gap 5 mEq/L Low 8-16 Calcium 9.9 mg/dL Normal 8.5-10.1 Total Protein 8.6 g/dL High 6.4-8.2 Albumin 4.2 g/dL Normal 3.4-5.0 Globulin 4.4 g/dL High 1.9-4.3 Alb/Glob 1.0 ratio Bilirubin,Total 0.3 mg/dL Normal 0.2-1.0 Sgot/Ast 28 U/L Normal 15-37 SGPT/Alt 24 U/L Normal 12-78 Alkaline Phosphatase 116 U/L Normal 45-117 Protime 08/06/2019 [facility]. Protime 12.3 seconds Normal 12.0-14.4 LABORATORY [phone] Inr 0.9 Normal 0.9-1.1 8 CBS W/Automated 08/06/2019 [facility] White Blood 12.6 K/uL High 3.1-10.7 Diff LABORATORY Count [phone] Red Blood Count 5.40 M/uL Normal 3.90-5.40 Hemoglobin 15.5 gm/dL Normal 11.6-15.8 Hematocrit 46.3 % High 36.0-46.1 Mean Cell Volume 85.7 fl Normal 80.9-99.0 Mean Corpuscular HGB 28.7 pg Normal 25.9-32.7 Mean Corpuscular HGB Conc 33.5 g/dL Normal 30.8-34.3 Platelet Count 187 K/uL Normal 155-360 Red Cell Distri Width SD 44.7 fl Normal 36-47 Red Cell Distri Width %CV 14.4 % Normal 11.7-14.4 Mean Platelet Volume 11.3 fl Normal 8.9-12.4 Neut% 88.6 % High 40.4-72.8 Lymph % 8.6 % Low 20.0-42.0 [place] % 1.8 % Low 4.3-13.2 Eo% 0.1 % Normal 0.0-6.6 Bas% 0.3 % Normal 0.0-1.1 Immature Grans 0.6 % Normal 0.0-5.0 NRBC % 0.0 /100WBC < 10/ 100 WBC Neut# 11.13 K/uL High 1.8-7.0 Lymph # 1.08 K/uL Normal 1.0-4.0 [place] # 0.23 K/uL Low 0.3-0.9 Eos # 0.01 K/uL Normal 0.0-0.5 Baso # 0.04 K/uL Normal 0.0-0.1 Immature Grans Absolute 0.08 K/uL NRBC # 0.00 K/uL CBC 08/06/2019 [facility] White Blood Count 10.1 K/uL Normal 3.1-10.7 9 LABORATORY [phone] Red Blood Count 4.85 M/uL Normal 3.90-5.40 Hemoglobin 14.1 gm/dL Normal 11.6-15.8 Hematocrit 41.6 % 36.0-46.1 Mean Cell Volume 85.8 fl Normal 80.9-99.0 Mean Corpuscular HGB 29.1 pg Normal 25.9-32.7 Mean Corpuscular HGB Conc 33.9 g/dL Normal 30.8-34.3 Platelet Count 174 K/uL Normal 155-360 Red Cell Distri Width SD 43.3 fl Normal 36-47 Red Cell Distri Width %CV 14.0 % Normal 11.7-14.4 Mean Platelet Volume 11.1 fl Normal 8.9-12.4 NRBC % 0.0 /100WBC < 10/ 100 WBC Laboratory test 08/06/2019 [facility] C. Difficile NEGATIVE Negative 10 finding LABORATORY Toxin B by PCR [phone] Enteric 08/06/2019 [facility]. Campylobacter SP NEGATIVE Negative Pathogens LABORATORY PCR Panel, PCR [phone] E. coli Stec PCR NEGATIVE Negative 11 Shigella Sp. PCR NEGATIVE Negative Salmonella Sp. PCR NEGATIVE Negative 12 THC Confirmation Urine 07/09/2019 [facility] Urine Carboxy THC >500.0 ng/mL 13 [phone] Confirm Urine THC Interpretation Positive. 14 Lipid Profile 07/09/2019 [facility] Triglycerides 116 mg/dL 15 (Trig/Chol/HDL) [phone] Cholesterol 317 mg/dL 16 HDL Cholesterol 35.7 mg/dL 17 LDL Cholesterol 258 mg/dL 18 Drug Abuse 07/09/2019 [facility] Urine Alcohol Negative mg/dL Cutoff : 10 W/Confirm, Ur [phone] Urine Amphetamine Negative ng/mL 19 Urine Barbiturates Negative ng/mL 20 Urine Benzodiazepines Negative ng/mL 21 Urine Cocaine Negative ng/mL 22 Urine Methadone Negative ng/mL Negative 23 Urine Opiates Negative ng/mL Negative 24 Urine Phencyclidine Negative ng/mL Cutoff: 25 Urine Tetrahydrocannabinol Presumptive Posi <SEE NOTE> ng/mL Abnormal Cutoff : 50 25 Laboratory test 07/09/2019 [facility] Vitamin B12 486 pg/mL Normal 180-914 26 finding [phone] Vitamin D Total 25(Oh) 28.7 ng/mL Normal 20-50 27 Urinalysis Profile 07/09/2019 [facility] Urine Color [place] [phone] Urine Appearance Turbid Urine Specific [place] 1.020 Normal 1.010-1.030 Urine pH 5.0 Normal 5-9 Urine Urobilinogen Negative Negative Urine Ketones Negative Negative Urine Protein Negative Negative Urine Leukocytes Negative Negative Urine Blood Negative Negative Urine Nitrite Negative Negative Urine Bilirubin Negative Negative Urine Glucose Negative Negative Laboratory test 07/09/2019 [facility] Hemoglobin A1c 5.6 % Normal 4.0 -5.6 28 finding [phone] (Glyco HGB) Magnesium 1.9 mg/dL Normal 1.9-2.7 TSH (Thyroid Stim Horm) 2.17 mcIU/mL Normal 0.34-5.60 Comp Metabolic Panel 07/09/2019 [facility] Sodium 139 mmol/L Normal 135-145 [phone] Potassium 4.4 mmol/L Normal 3.5-5.0 Chloride 108 mmol/L Normal 101-111 Co2 Carbon Dioxide 23 mmol/L Normal 22-32 Anion Gap 8 mmol/L Normal 2-11 Glucose 98 mg/dL Normal 70-100 Blood Urea Nitrogen 11 mg/dL Normal 6-24 Creatinine 0.77 mg/dL Normal 0.51-0.95 BUN/Creatinine Ratio 14.3 Normal 8-20 Calcium 9.7 mg/dL Normal 8.6-10.3 Total Protein 7.5 g/dL Normal 6.4-8.9 Albumin 4.5 g/dL Normal 3.2-5.2 Globulin 3.0 g/dL Normal 2-4 Albumin/Globulin Ratio 1.5 Normal 1-3 Total Bilirubin 0.40 mg/dL Normal 0.2-1.0 Alkaline Phosphatase 106 U/L High 34-104 Alt 15 U/L Normal 7-52 Ast 15 U/L Normal 13-39 Egfr Non- 81.8 >60 Egfr 99.0 >60 29 CBC Auto Diff 07/09/2019 [facility] White Blood 6.4 10^3/uL Normal 3.5-10.8 [phone] Count Red Blood Count 5.04 10^6/uL High 3.70-4.87 Hemoglobin 14.5 g/dL Normal 12.0-16.0 Hematocrit 43 % Normal 35-47 Mean Corpuscular Volume 86 fL Normal 80-97 Mean Corpuscular Hemoglobin 29 pg Normal 27-31 Mean Corpuscular HGB Conc 33 g/dL Normal 31-36 Red Cell Distribution Width 14 % Normal 10-15 Platelet Count 175 10^3/uL Normal 150-450 Mean Platelet Volume 9.1 fL Normal 7.4-10.4 Abs Neutrophils 3.5 10^3/uL Normal 1.5-7.7 Abs Lymphocytes 2.4 10^3/uL Normal 1.0-4.8 Abs Monocytes 0.3 10^3/uL Normal 0-0.8 Abs Eosinophils 0.1 10^3/uL Normal 0-0.6 Abs Basophils 0.1 10^3/uL Normal 0-0.2 Abs Nucleated RBC 0.0 10^3/uL Granulocyte % 54.6 % Lymphocyte % 38.0 % Monocyte % 4.6 % Eosinophil % 1.5 % Basophil % 1.3 % Nucleated Red Blood Cells % 0.0 Comp Metabolic Panel 03/11/2019 [facility] Sodium 140 mmol/L Normal 135-145 [phone] Potassium 4.2 mmol/L Normal 3.5-5.0 Chloride 107 [...] Egfr Non- 67.5 >60 Egfr 81.6 >60 30 Laboratory test finding 03/11/2019 [facility] Lipase 20 U/L Normal 11.0-82.0 [phone] C Reactive Protein 13.81 mg/L High <8.01 HCG 0.99 mIU/mL 31 Lactic Acid 2.1 mmol/L Critical high 0.5-2.0 32 CBC Auto Diff 03/11/2019 [facility] White Blood 13.4 10^3/uL High 3.5 -10.8 [phone] Count Red Blood Count 5.55 10^6/uL High 3.70-4.87 Hemoglobin 15.9 g/dL Normal 12.0-16.0 Hematocrit 47 % Normal 35-47 Mean Corpuscular Volume 85 fL Normal 80-97 Mean Corpuscular Hemoglobin 29 pg Normal 27-31 Mean Corpuscular HGB Conc 34 g/dL Normal 31-36 Red Cell Distribution Width 15 % Normal 10.5-15 Platelet Count 194 10^3/uL Normal 150-450 33 Mean Platelet Volume 8.7 fL Normal 7.4-10.4 [...] Blood Cells % 0.1 Urinalysis Profile 03/11/2019 [facility] Urine Color Yellow [phone] Urine Appearance Clear Urine Specific [place] 1.023 Normal 1.010-1.030 Urine pH 5.0 Normal [...] Present Abnormal Absent Urine Culture And 03/11/2019 [facility] Urine Culture SEE RESULT 34 Sensitivities [phone] BELOW 1 ABDOMIN PAIN 2 URINE, CLEAN CATCH 3 Note: Persistent reduction for 3 months or more in an eGFR <60 mL/min/1.73 m2 defines CKD. Patients with eGFR values >/=60 mL/min/1.73 m2 may also have CKD if evidence of persistent proteinuria is present. The original MDRD equation for estimated GFR is not valid for patients less than 18 years of age. Additional information may be found at www.[email or web address]. 4 GI BLEEDING, RECTAL BLEEDING 5 Note: Persistent reduction for 3 months or more in an eGFR <60 mL/min/1.73 m2 defines CKD. Patients with eGFR values >/=60 mL/min/1.73 m2 may also have CKD if evidence of persistent proteinuria is present. The original MDRD equation for estimated GFR is not valid for patients less than 18 years of age. Additional information may be found at www.[email or web address]. 6 ABD PAIN 7 Note: Persistent reduction for 3 months or more in an eGFR <60 mL/min/1.73 m2 defines CKD. Patients with eGFR values >/=60 mL/min/1.73 m2 may also have CKD if evidence of persistent proteinuria is present. The original MDRD equation for estimated GFR is not valid for patients less than 18 years of age. Additional information may be found at www.[email or web address]. 8 THERAPEUTIC INR RANGE: 2.0 - 3.0 DVT, Pulmonary embolus, prophylaxis against venous thrombosis or systemic embolization in high risk patients. 2.5 - 3.5 Mechanical heart valves 9 GI BLEEDING, RECTAL BLEEDING 10 A positive C. diff result does not necessarily indicate the presence of viable organisms. It does however indicate the presence of the tcdB gene and allows for presumptive detection of a Clostridium difficile toxigenic organism. As with all PCR-based in vitro diagnostic tests, extremely low levels of DNA below the limit of detection of the assay may produce a false negative result. METHOD: PCR 11 Shiga-toxin producing E. coli (STEC). 12 A positive result does not necessarily indicate the presence of viable organism. It does however, indicate the presence of DNA from Campylobacter sp., Salmonella sp., Shigella sp. and/or shiga toxin producing E. coli (STEC). Yersinia, Vibrio, Aeromonas and Plesiomonas are not routinely screened for and should be requested separately. Assay Limitations This assay detects only Campylobacter jejuni and Campylobacter coli and does not differentiate between the species. Other campylobacter species are not detected by the assay. The assay does not distinguish which Shiga toxin gene (stx1/stx2) is present in a specimen. The assay does not differentiate between Shigella sp., and enteroinvasive Escherichia coli (EIEC). As with all PCR-based in vitro diagnostic tests, extremely low levels of DNA below the analytical sensitivity of the assay may produce a false negative result. METHOD: PCR 13 REFERENCE VALUE Cutoff: 3.0 14 ADDITIONAL INFORMATION This report is intended for use in clinical monitoring and management of patients. It is not intended for use in employment-related testing. This test was developed and its performance characteristics determined by [facility] in a manner consistent with CLIA requirements. This test has not been cleared or approved by the U.S. Food and Drug Administration. Test Performed by: [facility] - [place] [address] [place] [address] Rest Room Maid: Gee Duran M.D. Ph.D.; CLIA# [id number] 15 Desirable: <150 Borderline High: 150-199 High: 200-499 Very High: >500 16 Desirable: <200 Borderline High: 200-239 High: >239 17 Low: <40 Desirable: 40-60 High: >60 18 Desirable: <100 Near Optimal: 100-129 Borderline High: 130-159 High: 160-189 Very High: >189 19 REFERENCE VALUE Cutoff: 500 20 REFERENCE VALUE Cutoff: 200 21 REFERENCE VALUE Cutoff: 100 22 REFERENCE VALUE Cutoff: 150 23 REFERENCE VALUE Cutoff: 300 24 REFERENCE VALUE Cutoff: 300 25 Presumptive Positive Drug confirmation to follow. Presumptive Positive means that the screening method is positive, but the test needs to be run by a confirmatory method before being finalized. ADDITIONAL INFORMATION This report is intended for use in clinical monitoring or management of patients. It is not intended for use in employment-related testing. This test has been modified from the slurry man's instructions. Its performance characteristics were determined by [facility] in a manner consistent with CLIA requirements. This test has not been cleared or approved by the U.S. Food and Drug Administration. Test Performed by: [place] [address] Rest Room Maid: Gee Duran M.D. Ph.D.; CLIA# [id number] 26 Normal Range 180 to 914 Indeterminate Range 145 to 180 Deficient Range <145 27 Total 25-Hydroxyvitamin D2 and D3 (25-OH-VitD) <10 ng/mL (severe deficiency) 10-19 ng/mL (mild to moderate deficiency) 20-50 ng/mL (optimum levels) 51-80 ng/mL (increased risk of hypercalciuria) >80 ng/mL (toxicity possible) 28 Therapeutic target for the treatment of diabetes mellitus patients is <7% HBA1C, and in selective patients <6.0%. Please refer to [place] [employer] diabetic care guidelines for further information. 29 Because ethnic data is not always readily [...] 15-29 5 Kidney failure <15 (or dialysis) 30 Because ethnic data is not always readily [...] 15-29 5 Kidney failure <15 (or dialysis) 31 <5.0 Negative 5.0 - 25.0 Indeterminate (Repeat testing recommended after 72 hours) >25.0 Positive Perimenopausal women can display HCG levels of up to 20 mIU/mL 32 Verbal to [id number] by [id number] at 0833 on 03/12/19.Results read back accurately [facility] Severe Sepsis and Septic Shock Management Bundle Measure requires all lactic acids initially measuring >2.0 mmol/L be repeated. 33 Platelet count confirmed by estimate 34 SEE RESULT BELOW Name: DESIRAE SAEED : [address]: Nikolay Guaman MD Acct: [id number] Unit: [id number] AGE: 44 Location: ED Re03/12/19 SEX: F Status: DEP ER SPEC: [id number] YANI: 03/12/19-999 [facility] DR: Nikolay Guaman MD REQ: [id number] RECD: 03/12/19 STATUS: SCOTT VO DR: Alondra MAYERSC _ SOURCE: URINE SPDESC: ORDERED: Urine Culture Procedure Result Reported Site Urine Culture Final 03/13/19- 08 ML No Growth (<1,000 CFU/mL) * ML - Main Lab . END OF REPORT DEPARTMENT OF PATHOLOGY, [address] [place] [address] Boy Mosher M.D. Director [facility] # [id number] Procedures Date Code Description Status 11/04/2012 [id number] Mammogram Completed Medical Devices Description No Information Available Encounters Type Date Location Provider Dx Diagnosis Office Visit 08/11/2019 Main Office Alondra Flynn PA K52.3 Indeterminate colitis 9:45a K62.5 Hemorrhage of anus and rectum R91.1 Solitary pulmonary nodule M89.8x5 Other specified disorders of bone, thigh Z68.26 Body mass index (BMI) 26.0-26.9, adult Office Visit 07/30/2019 1:55p Main Office Alondra Flynn, L01.00 Impetigo, PA unspecified Office Visit 07/09/2019 12:05p Main Office Alondra Flynn, R42 Dizziness and PA giddiness G89.4 Chronic pain syndrome N20.0 Calculus of kidney F17.210 Nicotine dependence, cigarettes, uncomplicated F33.9 Major depressive disorder, recurrent, unspecified Office Visit 03/24/2019 2:30p Main Office Alondra Flynn, J01.90 Acute sinusitis, PA unspecified R51 Headache Office Visit 02/24/2019 9:25a Main Office Alondra Flynn PA G89.4 Chronic pain syndrome 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 N20.0 Calculus of kidney F17.210 Nicotine dependence, cigarettes, uncomplicated F33.9 Major depressive disorder, recurrent, unspecified Assessments Date Code Description Provider 08/11/2019 K52.3 Indeterminate colitis Alondra Flynn PA 08/11/2019 K62.5 Hemorrhage of anus and rectum Alondra Flynn PA 08/11/2019 R91.1 Solitary pulmonary nodule Alondra Flynn PA 08/11/2019 M89.8x5 Other specified disorders of bone, thigh Alondra Flynn PA 08/11/2019 Z68.26 Body mass index (BMI) 26.0-26.9, adult Alondra Flynn PA 07/30/2019 L01.00 Impetigo, unspecified Alondra Flynn PA 07/09/2019 R42 Dizziness and giddiness Alondra Flynn PA 07/09/2019 G89.4 Chronic pain syndrome Alondra Flynn PA 07/09/2019 N20.0 Calculus of kidney Alondra Flynn PA 07/09/2019 F17.210 Nicotine dependence, cigarettes, uncomplicated Alondra Flynn PA 07/09/2019 F33.9 Major depressive disorder, recurrent, Alondra Flynn PA unspecified 03/24/2019 J01.90 Acute sinusitis, unspecified Alondra Flynn PA 03/24/2019 R51 Headache Alondra Flynn PA 02/24/2019 G89.4 Chronic pain syndrome Alondra Flynn PA 02/24/2019 Z79.891 skilled nursing (current) use of opiate analgesic Alondra Flynn PA 02/24/2019 N20.0 Calculus of kidney Alondra Flynn PA 02/24/2019 F17.210 Nicotine dependence, cigarettes, uncomplicated Alondra Flynn PA 02/24/2019 F33.9 Major depressive disorder, recurrent, Alondra Flynn PA unspecified Plan of Treatment 07/30/2019 - Alondra Flynn, PAL01.00 Impetigo, unspecifiedNew Medication: Mupirocin 2 % - apply to affected area twice a day until resolvedComments:Rx for mupirocin cream. Recheck if sx not improving. Functional Status Description No Information Available Mental Status Description No Information Available Referrals Refer to Reason for Referral Status Appt Date Avery Em MD consult and colonoscopy Created [address] [id number] [phone]
--- OUTSIDE RECORDS SUMMARY | 2019-08-13 16:15 | XMS REPORT | Continuity of Care Document ---
:1975 External Reference #:[id number] Author Name Alondra Flynn PA (transmitted by agent of provider Yunior Marshall) Address [address] [facility], [address] [place] [address] Care Team Providers Name Role Phone Js Moreno MD - Urology Care Team Information Food Processor [phone] Alexi Pena DO - Pain Medicine Care Team Information Food Processor Alhaji Fink MD - Neurological Care Team Information Food Processor Surgery HCP given Care Team Information Food Processor Unavailable Problems Active Problems Provider Date Splenic [...] H/L Range Note Comp Metabolic Panel 03/11/2019 [facility] Sodium 140 mmol/L Normal 135-145 [phone] Potassium 4.2 mmol/L Normal 3.5-5.0 Chloride 107 [...] 81.6 >60 1 Laboratory test finding 03/11/2019 [facility] Lipase 20 U/L Normal 11.0-82.0 [phone] C Reactive Protein 13.81 mg/L High <8.01 HCG 0.99 mIU/mL 2 Lactic Acid 2.1 mmol/L Critical high 0.5-2.0 3 CBC Auto Diff 03/11/2019 [facility] White Blood 13.4 10^3/uL High 3.5 -10.8 [phone] Count Red Blood Count 5.55 10^6/uL High [...] Blood Cells % 0.1 Urinalysis Profile 03/11/2019 [facility] Urine Color Yellow [phone] Urine Appearance Clear Urine Specific [place] 1.023 Normal 1.010-1.030 Urine pH 5.0 Normal [...] Present Abnormal Absent Urine Culture And 03/11/2019 [facility] Urine Culture SEE RESULT BELOW 5 Sensitivities [phone] Urine Drug Screen 01/21/2019 In House [facility] Cocaine - Inhouse Ua Opiates - Ua Amphetamines - Urine Methanphetamines - Urine Benzodiazepines QN [place] - Urine Oxycodone QL + 1 Because [...] up to 20 mIU/mL 3 Verbal to [id number] by [id number] at 0833 on 03/12/19.Results read back accurately [facility] Severe Sepsis and Septic Shock Management Bundle Measure requires all lactic acids initially measuring >2.0 mmol/L be repeated. 4 Platelet count confirmed by estimate 5 SEE RESULT BELOW Name: DESIRAE SAEED Angela : [address]: Nikolay Guaman MD Acct: [id number] Unit: [id number] AGE: 44 Location: ED Re03/12/19 SEX: F Status: DEP ER SPEC: [id number] YANI: 03/12/19-[address]: Nikolay Guaman MD REQ: [id number] RECD: 03/12/19 STATUS: SCOTT VO DR: Alondra Flynn [facility] _ SOURCE: URINE SPDESC: ORDERED: Urine Culture Procedure Result Reported Site Urine Culture Final 03/13/19- 826 ML No Growth (<1,000 CFU/mL) * ML - Main Lab . END OF REPORT DEPARTMENT OF PATHOLOGY, [address] [place] [address] Boy Mosher M.D. 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 N20.0 Calculus of kidney F17.210 Nicotine dependence, cigarettes, uncomplicated F33.9 Major depressive disorder, recurrent, unspecified Office Visit 01/21/2019 10:40a Main Office Alondra Flynn PA G89.4 Chronic pain syndrome Z79.891 senior living (current) use of opiate analgesic N20.0 Calculus of kidney F17.210 Nicotine dependence, cigarettes, uncomplicated Assessments Date Code Description Provider 03/24/2019 J01.90 Acute sinusitis, unspecified Alondra Flynn PA 03/24/2019 R51 Headache Alondra Flynn PA 02/24/2019 G89.4 Chronic pain syndrome Alondra Flynn PA 02/24/2019 Z79.891 senior living (current) use of opiate analgesic Alondra Flynn PA 02/24/2019 N20.0 Calculus of kidney Alondra Flynn PA 02/24/2019 F17.210 Nicotine dependence, cigarettes, uncomplicated Alondra Flynn PA 02/24/2019 F33.9 Major depressive disorder, recurrent, Alondra Flynn PA unspecified 01/21/2019 G89.4 Chronic pain syndrome Alondra Flynn PA 01/21/2019 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 Pt to continue taking pain medications as directed, push fluids. Will re-refer back to Dr. Moreno (urology) for further management.Referral:Js Moreno MD, BbytsxzU42.4 Chronic pain syndromeComments:Severe multifaceted chronic pain, stable on current meds. Continue same and monitor. Functional Status Description No Information Available Mental Status Description No Information Available Referrals Description No Information Available
[2019-08-13] MEDS ORDERED: Ondansetron ODT TAB* 4 MG ONE (18:04)
[2019-08-13] MEDS ORDERED: Acetaminophen TAB* 325 MG ONE (18:05)
[2019-08-13] MEDS: Ondansetron ODT TAB* 4 MG PO ONE ×2 (18:07→19:01)
[2019-08-13] MEDS: Acetaminophen TAB* 325 MG PO ONE ×2 (18:08→19:01)
[2019-08-13] MEDS ORDERED: NS 0.9% 1000 ML** 1,000 ML IV ONE (18:27)
--- NOTE | 2019-08-13 18:39 | ED ---
Abdominal Pain/Female - HPI Summary HPI Summary: pt c/o abdominal pain x 1 week, was seen 3 times this past week at [facility], had labs and abd. CT showing evidence of colitis, was admitted overnight. has also seen PCP, pt was told to return to the ED if pain worsens. no fever, vomiting, diarrhea, dysuria, vaginal d/c. remote h/o hysterectomy. has been on a clear liquid diet. last BM about 6 days ago. usually has BM daily. pt then states, "I wouldn't even be here if it - History of Current Complaint Chief Complaint: EDAbdPain Stated Complaint: ABD PAIN PER EMS Time Seen by Provider: 08/13/19 18:18 Hx Last Menstrual Period: 22 yrs ago Pain Intensity: 10 Allergies/Adverse Reactions: Allergies Allergy/AdvReac Type Severity Reaction Status Date / Time hydrocodone [From Vicodin] Allergy Severe Airway Verified 08/13/19 18:24 Obstruction nicotine [From Nicoderm CQ] Allergy Severe Rash Verified 08/13/19 18:24 pregabalin Allergy Severe Altered Verified 08/13/19 18:24 Mental Status varenicline Allergy Severe Nausea, Verified 08/13/19 18:24 Tongue "tingling" ibuprofen AdvReac Intermediate Vomiting Verified 08/13/19 18:24 NICOTINE PATCH Allergy Severe Rash Uncoded 08/13/19 18:24 PMH/Surg Hx/FS Hx/Imm Hx Endocrine/Hematology History: Denies: Hx Diabetes, Hx Systemic Lupus Erythematosus, Hx Thyroid Disease Cardiovascular History: Reports: Hx Hypercholesterolemia Denies: Hx Congestive Heart Failure, Hx Hypertension, Hx Pacemaker/ICD Respiratory History: Reports: Hx Chronic Obstructive Pulmonary Disease (COPD), Other Respiratory Problems/Disorders - SOB/WHEEZING WITH EXTREME EXERTION- PRN INHALER Denies: Hx Asthma GI History: Denies: Hx Ulcer History: Reports: Hx Kidney Stones, Other Problems/Disorders - KIDNEY STONES X 5 [facility] KIDNEY SURGERY X 5 Denies: Hx Dialysis, Hx Renal Disease Musculoskeletal History: Reports: Other Musculoskeletal History - HX FIBROMYALGIA Denies: Hx Rheumatoid Arthritis Sensory History: Reports: Hx Contacts or Glasses - GLASSES Opthamlomology History: Reports: Hx Contacts or Glasses - GLASSES Psychiatric History: Denies: Hx Panic Disorder - Cancer History Cancer Type, Location and Year: uterine ca Hx Chemotherapy: No - Surgical History Surgery Procedure, Year, and Place: X 5 [facility] CALCULI, HYSTERECTOMY Hx Anesthesia Reactions: No - Immunization History Immunizations Up to Date: Yes Infectious Disease History: No Infectious Disease History: Denies: Hx Hepatitis, Hx Human Immunodeficiency Virus (HIV), Traveled Outside the [place] in Last 30 Days - Family History Family History: neg: anaesthesia reaction - Social History Alcohol Use: None Hx Substance Use: Yes Substance Use Type: Reports: Marijuana Hx Tobacco Use: Yes Smoking Status (MU): Light Every Day Tobacco Smoker Type: Cigarettes Review of Systems Eyes: Other - baseline vision (wears glasses) ENT: Negative Cardiovascular: Negative Respiratory: Negative Positive: Abdominal Pain, Other - states "I'm starving". Negative: Vomiting, Diarrhea Genitourinary: Negative All Other Systems Reviewed And Are Negative: Yes Physical Exam Triage Information Reviewed: Yes Vital Signs On Initial Exam: Initial Vitals Temp Pulse Resp BP Pulse Ox 97.8 F 70 18 138/76 98 08/13/19 15:44 08/13/19 15:44 08/13/19 15:44 08/13/19 15:44 08/13/19 15:44 Appearance: Positive: Well-Appearing Skin: Positive: Warm Head/Face: Positive: Normal Head/Face Inspection Eyes: Positive: Normal ENT: Positive: Normal ENT inspection Neck: Positive: Supple, Nuchal Rigidity Respiratory/Lung Sounds: Positive: Clear to Auscultation Cardiovascular: Positive: Normal Abdomen Description: Positive: Nontender, No Organomegaly, Soft. Negative: CVA Tenderness (L), Distended, Guarding, McBurney's Point Tenderness, Peritoneal Signs Bowel Sounds: Positive: Present Musculoskeletal: Positive: Normal Neurological: Positive: Normal Psychiatric: Positive: Normal AVPU Assessment: Alert Procedures - Sedation Patient Received Moderate/Deep Sedation with Procedure: No Diagnostics - Vital Signs Vital Signs Temp Pulse Resp BP Pulse Ox 08/13/19 17:23 97.5 F 95 22 190/83 98 08/13/19 15:44 97.8 F 70 18 138/76 98 - Laboratory Result Diagrams: 08/13/19 18:39 08/13/19 18:38 Lab Statement: Any lab studies that have been ordered have been reviewed, and results considered in the medical decision making process. Abdominal Pain Fem Course/Dx - Course Course Of Treatment: Patient has CT scan on August 09 at [place] w/o evidence of kidney stones, no obstruction. I spoke with the patient, she denied abdominal pain or diarrhea at this time. He reported mild nausea and a headache which resolved with medications here. Patient states she is hungry and would like to try orange juice. Plan for PO able to tolerate by mouth we' ll discharge to home. Abdomen is soft, nontender, patient is afebrile does have mild leukocytosis at 12. Given recent negative workup will hold off on further imaging at this time, advised to return if feeling worse. - Diagnoses Provider Diagnoses: Headache, Abdominal pain, Nausea Discharge ED - Sign-Out/Discharge Documenting (check all that apply): Sign-Out Patient Signing out patient TO: Sahil Kaye Valeri - 1900 - Discharge Plan Condition: Stable Disposition: HOME Patient Education Materials: Acute Headache (ED), Acute Nausea and Vomiting (ED ) Referrals: Alondra Flynn PA [Primary Care Provider] - Additional Instructions: You were seen in the emergency department for headache. Your labs did not show any cause for your pain. We reviewed your records which showed a normal CT scan. Please follow up with your primary care doctor in next 2-3 days and return to emergency department for worsening pain, fevers, inability to eat or drink or concerning symptoms. It was a pleasure taking care of you today. - Billing Disposition and Condition Condition: STABLE Disposition: Home
[2019-08-13] MEDS: Ketorolac INJ* 30 MG/ML 1 ML VIAL IV ONE ×2 (18:57→19:01)
[2019-08-13 19:07] LABS: ABS Basophils 0.1 10^3/ul (0-0.2); ABS Eosinophils 0.1 10^3/ul (0-0.6); ABS Lymphocytes 2.8 10^3/ul (1.0-4.8); ABS Monocytes 0.3 10^3/ul (0-0.8); ABS Neutrophils 9.2 10^3/ul (1.5-7.7); Eosinophil % 0.4 %; Hematocrit 44 % (35-47); Hemoglobin 14.7 g/dL (12.0-16.0); Lymphocyte % 22.8 %; Mean Corpuscular HGB Conc 33 g/dL (31-36); Mean Corpuscular Hemoglobin 29 pg (27-31); Mean Corpuscular Volume 86 fL (80-97); Mean Platelet Volume 9.2 fL (7.4-10.4); Nucleated Red Blood Cells % 0.1; Platelet Count 212 10^3/uL (150-450); Red Blood Count 5.13 10^6 /uL (3.70-4.87); Red Cell Distribution Width 15 % (10-15); White Blood Count 12.5 10^3/uL (3.5-10.8)
[2019-08-13 19:18] LABS: Albumin 4.7 g/dL (3.2-5.2); Albumin/Globulin Ratio 1.4 (1-3); BUN/Creatinine Ratio 14.6 (8-20); C Reactive Protein 2.99 mg/L (<8.01); Calcium 10.4 mg/dL (8.6-10.3); EGFR African American 92.1 (>60); EGFR Non-African American 76.1 (>60); Globulin 3.3 g/dL (2-4); Potassium 4.2 mmol/L (3.5-5.0); Total Bilirubin 0.3 mg/dL (0.2-1.0)
--- NOTE | 2019-08-13 20:15 | ED ---
Progress - Progress Note Progress Note: 1st re-evalation: At 20:00, discussed pts care and discharge. Pt is agreeable with this plan. Pt will be discharged home with a diagnosis of headache, nausea, and abdominal pain. Re-Evaluation - Re-Evaluation 1st re-eval Re-Evaluation Time: 20:00 Comment: At 20:00, discussed pts care and discharge. Pt is agreeable with this plan. Course/Dx - Course Course Of Treatment: Patient has CT scan on August 09 at [place] w/o evidence of kidney stones, no obstruction - Diagnoses Provider Diagnoses: Headache, Abdominal pain, Nausea Discharge ED - Sign-Out/Discharge Documenting (check all that apply): Patient Departure - Discharge - Discharge Plan Condition: Stable Disposition: HOME Patient Education Materials: Acute Headache (ED), Acute Nausea and Vomiting (ED ) Referrals: Alondra Flynn PA [Primary Care Provider] - Additional Instructions: You were seen in the emergency department for headache. Your labs did not show any cause for your pain. We reviewed your records which showed a normal CT scan. Please follow up with your primary care doctor in next 2-3 days and return to emergency department for worsening pain, fevers, inability to eat or drink or concerning symptoms. It was a pleasure taking care of you today. - Billing Disposition and Condition Condition: STABLE Disposition: Home - Attestation Statements Document Initiated by Zoë: Yes Documenting Scribe: Chrissy Norris Provider For Whom Zoë is Documenting (Include Credential): Sahil Trammell MD Scribe Attestation: I, Chrissy Norris, scribed for Sahil Trammell MD on 08/19/19 at 1118. Scribe Documentation Reviewed: Yes Provider Attestation: The documentation as recorded by the Chrissy ramey accurately reflects the service I personally performed and the decisions made by me, Sahil Trammell MD Status of Scribe Document: Viewed
[2019-08-13 20:44] VITALS: BP 136/100
== END 2019-08-13 20:45 | disposition home or self-care (01) ==
LOC: ED 15:43
DX: R51 Headache (principal); R10.9 Unspecified abdominal pain; R11.0 Nausea; E78.00 Pure hypercholesterolemia, unspecified; Z87.442 Personal history of urinary calculi; Z85.42 Personal history of malignant neoplasm of other parts of uterus; F17.210 Nicotine dependence, cigarettes, uncomplicated; J44.9 Chronic obstructive pulmonary disease, unspecified
CPT/HCPCS: 36415; 80053; 85025; 86140; 96361; 96374; 99283; A9270-GY; J1885